=== PATIENT | female | born 1995 | race African-American/Black ===

== ENCOUNTER 2017-10-10 09:25 | Inpatient (IN) ==
[2017-10-10 10:16] LABS: Amorphous Crystals,Urine Occasional /HPF (Few); Apearance,Urine CLOUDY (Clear); Bacteria,Urine Occasional /HPF (Few); Bilirubin,Urine Negative (Negative); Blood, Urine Negative (Negative); Glucose,Urine (UA) Negative (Negative); Ketones,Urine Negative (Negative); Mucus,Urine Occasional /LPF (Occasional); Nitrite,Urine Negative (Negative); Protein,Urine Negative; RBC,Urine 3 /HPF (0-4); Squamous Epithelial Cell,Urine Many /HPF (0-10); Urine Color Yellow (Yellow); Urine Specific Gravity 1.015 (1.001-1.035); Urine Urobilinogen < 2.0 EU/DL (0.2-1.0); WBC,Urine 32 /HPF (0-6)
[2017-10-10] MEDS ORDERED: SODIUM CHLORIDE 0.9% 1,000 ML IV STA (10:39)
[2017-10-10] MEDS ORDERED: ONDANSETRON 4 MG/2 ML VIAL IV STA (10:40)
[2017-10-10] MEDS ORDERED: ONDANSETRON 4 MG/2 ML VIAL ONE (10:46)
[2017-10-10 11:01] LABS: Basophils # 0.1 10*3/uL (0.0-0.2); Basophils % 0.3 % (0.0-0.8); Eosinophils # 0.1 10*3/uL (0.0-0.87); Eosinophils % 0.3 % (0.00-10.9); Hematocrit 40.1 VOL% (35.7-47.0); Hemoglobin 13.7 GM/DL (12.0-16.0); Immature Granulocytes % 0.5 %; Immature Granulocytes Absolute 0.08 #; Lymphocytes # 2.3 10*3/uL (1.4-4.0); Lymphocytes % 13.4 % (21.3-54.2); Mean Corpuscular HGB Conc 34.2 GM/DL (32-36); Mean Corpuscular Hemoglobin 32 PG (27-34); Mean Corpuscular Volume 94.8 FL (87-102); Mean Platelet Volume 9.5 FL (9.6-12.0); Monocytes # 0.9 10*3/uL (0.11-0.8); Monocytes % 5.5 % (1.7-12.7); Neutrophils # 13.6 10*3/uL (1.4-7.4); Platelet Count 266 T/CUMM (130-400); Red Blood Count 4.23 MC/CUMM (3.8-5.5); Red Cell Distribution Width 13.2 % (9.3-17.3)
[2017-10-10 11:21] LABS: Alanine Aminotransferase 13 U/L (13-56); Albumin 3.5 G/DL (3.4-5.0); Alkaline Phosphatase 52 U/L (45-117); Aspartate Amino Transferase 13 U/L (0-37); Bilirubin,Total < 0.39 MG/DL (0.2-1.0); Blood Urea Nitrogen 10 MG/DL (7-18); Calcium 8.9 MG/DL (8.5-10.1); Glucose 79 MG/DL (74-106); Osmolality,Calculated 276.4 MOS/KG (273-304); Potassium 4.1 MMOL/L (3.5-5.1); Sodium 140 MMOL/L (136-145); Total Protein 6.9 G/DL (6.4-8.3)
[2017-10-10] MEDS ORDERED: PROMETHAZINE 25 MG/1 ML VIAL IM STA (13:43)
[2017-10-10] MEDS ORDERED: PROMETHAZINE 25 MG/1 ML VIAL ONE (13:52)
[2017-10-10] MEDS: LACTATED RINGERS 1,000 ML IV SCH (14:55)
[2017-10-10] MEDS: PROMETHAZINE 25 MG/1 ML VIAL IM SCH ×3 (14:57→20:55)
[2017-10-10] MEDS ORDERED: FAMOTIDINE INJ 40 MG in SODIUM CHLORIDE 0.9% 100 ML IV SCH (15:00)
[2017-10-10] MEDS: AMPICILLIN/SULBACTAM 1,500 MG in SODIUM CHLORIDE 0.9% 100 ML IV SCH ×2 (16:10→22:58)
[2017-10-10] MEDS: FAMOTIDINE INJ 40 MG in SODIUM CHLORIDE 0.9% 100 ML IV SCH (18:15)
[2017-10-11] MEDS: LACTATED RINGERS 1,000 ML IV SCH ×2 (00:05→11:04)
[2017-10-11] MEDS: PROMETHAZINE 25 MG/1 ML VIAL IM SCH (04:50)
[2017-10-11] MEDS: FAMOTIDINE INJ 40 MG in SODIUM CHLORIDE 0.9% 100 ML IV SCH (06:07)
[2017-10-11] MEDS: AMPICILLIN/SULBACTAM 1,500 MG in SODIUM CHLORIDE 0.9% 100 ML IV SCH (06:50)
[2017-10-11 09:56] LABS: Albumin 2.4 G/DL (3.4-5.0); Bilirubin,Total 0.4 MG/DL (0.2-1.0); Osmolality,Calculated 273.5 MOS/KG (273-304); Potassium 3.6 MMOL/L (3.5-5.1); Total Protein 5.3 G/DL (6.4-8.3)
[2017-10-11 11:51] VITALS: BP 115/59
== END 2017-10-11 14:20 | disposition home or self-care (01) | DRG 566 ==
LOC: N.ED 09:25 → N.EDINP 14:17 → N.OB 14:36
PROVIDERS: ADMIT Obstetrics & Gynecology; ATTEND Obstetrics & Gynecology

== ENCOUNTER 2019-01-21 09:40 | Inpatient (IN) ==
[2019-01-21] MEDS ORDERED: ONDANSETRON 4 MG/2 ML VIAL IV PRN (09:56)
[2019-01-21] MEDS ORDERED: BUTORPHANOL 2 MG/ML VIAL IV PRN (09:56)
[2019-01-21] MEDS ORDERED: LACTATED RINGERS 1,000 ML IV SCH (10:00)
[2019-01-21] MEDS ORDERED: OXYTOCIN/LR 20 UNIT/1,000 ML BAG IV SCH (10:00)
[2019-01-21 10:19] LABS: Basophils % 0.2 % (0.0-0.8); Eosinophils # 0.1 10*3/uL (0.0-0.87); Eosinophils % 0.5 % (0.00-10.9); Hematocrit 34.5 VOL% (35.7-47.0); Hemoglobin 11.3 GM/DL (12.0-16.0); Immature Granulocytes % 0.6 %; Immature Granulocytes Absolute 0.07 #; Lymphocytes # 2.7 10*3/uL (1.4-4.0); Lymphocytes % 21.8 % (21.3-54.2); Mean Corpuscular HGB Conc 32.8 GM/DL (32-36); Mean Corpuscular Volume 95.3 FL (87-102); Mean Platelet Volume 11.1 FL (9.6-12.0); Monocytes % 6.8 % (1.7-12.7); Neutrophils % 70.1 % (38.7-73.9); Platelet Count 197 T/CUMM (130-400); Red Blood Count 3.62 MC/CUMM (3.8-5.5); Red Cell Distribution Width 13.2 % (9.3-17.3); White Blood Count 12.4 T/CUMM (4-12)
[2019-01-21 10:53] LABS: Albumin 2.4 G/DL (3.4-5.0); Bilirubin,Total 0.8 MG/DL (0.2-1.0); Calcium 8.6 MG/DL (8.5-10.1); Osmolality,Calculated 275.4 MOS/KG (273-304); Total Protein 6.5 G/DL (6.4-8.3)
[2019-01-21 11:40] LABS: HIV Antigen/Antibody Result Nonreactive (Nonreactive); Hepatitis B Surface Ag Quant < 0.10 Index; Hepatitis B Surface Ag Result Negative (Negative); Rubella Antibody IgG 207.5 IU/ML
[2019-01-21] MEDS ORDERED: MEPERIDINE 50 MG/1 ML VIAL IV PRN (12:49)
[2019-01-21] MEDS ORDERED: LACTATED RINGERS 1,000 ML IV ONE (12:55)
[2019-01-21] MEDS ORDERED: ePHEDrine 50 MG/ML AMP IV PRN (12:55)
[2019-01-21] MEDS ORDERED: FAMOTIDINE 20 MG/2 ML VIAL IV ONE (12:55)
[2019-01-21] MEDS ORDERED: CITRIC ACID/SODIUM CITRATE 30 ML UDCUP PO ONE (12:55)
[2019-01-21] MEDS ORDERED: PROMETHAZINE 25 MG/1 ML VIAL IM ONE (12:56)
[2019-01-21] MEDS ORDERED: NALOXONE 0.4 MG/ML VIAL IV PRN (12:56)
[2019-01-21] MEDS ORDERED: diphenhydrAMINE 50 MG/1 ML VIAL IV PRN ×2 (12:56)
[2019-01-21] MEDS ORDERED: hydrOXYzine HCL 25 MG/1 ML VIAL IM PRN (12:56)
[2019-01-21] MEDS ORDERED: fentaNYL 2 MCG/ROPIV 0.2% EPID 100 ML EPIDURAL SCH (13:00)
[2019-01-21 15:17] LABS: Apearance,Urine CLEAR (Clear); Bilirubin,Urine Negative (Negative); Blood, Urine Negative (Negative); Glucose,Urine (UA) Negative (Negative); Ketones,Urine 20 mg/dL (Negative); Mucus,Urine Occasional /LPF (Occasional); Nitrite,Urine Negative (Negative); Protein,Urine Negative; RBC,Urine <1 /HPF (0-4); Squamous Epithelial Cell,Urine Occasional /HPF (0-10); Urine Color Straw (Yellow); Urine Specific Gravity 1.009 (1.001-1.035); Urine Urobilinogen < 2.0 EU/DL (0.2-1.0); WBC,Urine <1 /HPF (0-6)
[2019-01-21] MEDS ORDERED: miSOPROStol 200 MCG TABLET ONE (17:03)
[2019-01-21] MEDS ORDERED: IBUPROFEN 800 MG TABLET PO ONE (20:05)
[2019-01-21] MEDS ORDERED: ACETAMINOPHEN 325 MG TABLET PO PRN (20:37)
[2019-01-21] MEDS ORDERED: MEASLES/MUMPS/RUBELLA VACCINE 0.5 ML VIAL SUBCUT ONE (20:37)
[2019-01-21] MEDS ORDERED: BISACODYL 10 MG SUPP RECTAL PRN (20:37)
[2019-01-21] MEDS ORDERED: HYDROCORTISONE 2.5% RECTAL CREAM 30 GM TUBE TOP PRN (20:37)
[2019-01-21] MEDS ORDERED: LANOLIN 50% CREAM 0.3 OZ TUBE TOP PRN (20:37)
[2019-01-21] MEDS ORDERED: oxyCODONE/ACETAMINOPHEN 5-325 MG TABLET PO PRN (20:37)
[2019-01-21] MEDS ORDERED: RHO(D) IMMUNE GLOBULIN 300 MCG SYRINGE IM ONE (20:37)
[2019-01-21] MEDS ORDERED: BENZOCAINE 20%/MENTHOL 0.5% SPRAY 56 GM CAN TOP PRN (20:37)
[2019-01-21] MEDS ORDERED: DIPH/TET/ACEL PERT BOOSTER VACCINE 0.5 ML VIAL IM ONE (20:37)
[2019-01-21] MEDS ORDERED: WITCH HAZEL PADS 100/JAR TOP PRN (20:37)
[2019-01-21] MEDS: DOCUSATE SODIUM 100 MG CAPSULE PO SCH (21:03)
[2019-01-21] MEDS: oxyCODONE/ACETAMINOPHEN 5-325 MG TABLET PO PRN (21:06)
[2019-01-22] MEDS: oxyCODONE/ACETAMINOPHEN 5-325 MG TABLET PO PRN ×4 (02:51→20:21)
[2019-01-22 03:22] LABS: Basophils % 0.2 % (0.0-0.8); Eosinophils # 0.1 10*3/uL (0.0-0.87); Eosinophils % 0.7 % (0.00-10.9); Hematocrit 30.9 VOL% (35.7-47.0); Hemoglobin 10.1 GM/DL (12.0-16.0); Immature Granulocytes % 0.3 %; Immature Granulocytes Absolute 0.04 #; Lymphocytes # 2.7 10*3/uL (1.4-4.0); Mean Corpuscular HGB Conc 32.7 GM/DL (32-36); Mean Corpuscular Volume 96.3 FL (87-102); Mean Platelet Volume 11.6 FL (9.6-12.0); Monocytes % 7.9 % (1.7-12.7); Neutrophils % 69.9 % (38.7-73.9); Platelet Count 154 T/CUMM (130-400); Red Blood Count 3.21 MC/CUMM (3.8-5.5); Red Cell Distribution Width 13.2 % (9.3-17.3)
[2019-01-22] MEDS: DOCUSATE SODIUM 100 MG CAPSULE PO SCH ×3 (07:29→21:57)
[2019-01-22] MEDS: IBUPROFEN 800 MG TABLET PO PRN ×3 (07:30→22:01)
[2019-01-23] MEDS: oxyCODONE/ACETAMINOPHEN 5-325 MG TABLET PO PRN ×2 (03:41→09:39)
[2019-01-23 07:48] VITALS: BP 118/72
[2019-01-23] MEDS: DOCUSATE SODIUM 100 MG CAPSULE PO SCH (08:06)
[2019-01-23] MEDS: IBUPROFEN 800 MG TABLET PO PRN (09:39)
== END 2019-01-23 15:10 | disposition home or self-care (01) | DRG 560 ==
LOC: N.LDOUT 09:40 → N.LD 09:44 → N.OB 20:36 → UNDODISIN 01-22 14:45
PROVIDERS: ADMIT Obstetrics & Gynecology; ATTEND Obstetrics & Gynecology

== ENCOUNTER 2020-03-05 07:22 | Inpatient (IN) ==
[2020-03-05] MEDS ORDERED: ONDANSETRON 4 MG/2 ML VIAL IV PRN ×2 (08:03→15:46)
[2020-03-05] MEDS ORDERED: MEPERIDINE 50 MG/1 ML VIAL IM PRN (08:03)
[2020-03-05] MEDS ORDERED: BUTORPHANOL 2 MG/ML VIAL IV PRN (08:03)
[2020-03-05 08:35] LABS: Basophils % 0.1 % (0.0-0.8); Eosinophils # 0.1 10*3/uL (0.0-0.87); Eosinophils % 0.6 % (0.00-10.9); Hematocrit 37.3 VOL% (35.7-47.0); Hemoglobin 12.4 GM/DL (12.0-16.0); Immature Granulocytes % 0.5 %; Immature Granulocytes Absolute 0.08 #; Lymphocytes % 19.7 % (21.3-54.2); Mean Corpuscular HGB Conc 33.2 GM/DL (32-36); Mean Corpuscular Volume 96.9 FL (87-102); Mean Platelet Volume 12.8 FL (9.6-12.0); Monocytes % 6.4 % (1.7-12.7); Neutrophils % 72.7 % (38.7-73.9); Platelet Count 152 T/CUMM (130-400); Red Blood Count 3.85 MC/CUMM (3.8-5.5); Red Cell Distribution Width 13.4 % (9.3-17.3); White Blood Count 15.1 T/CUMM (4-12)
[2020-03-05] MEDS ORDERED: NALOXONE 0.4 MG/ML VIAL IV PRN (08:35)
[2020-03-05] MEDS ORDERED: ONDANSETRON 4 MG/2 ML VIAL IV ONE (08:35)
[2020-03-05] MEDS ORDERED: diphenhydrAMINE 50 MG/1 ML VIAL IV PRN ×2 (08:35)
[2020-03-05] MEDS ORDERED: LACTATED RINGERS 1,000 ML IV ONE (08:35)
[2020-03-05] MEDS ORDERED: ePHEDrine 50 MG/ML VIAL IV PRN (08:35)
[2020-03-05] MEDS ORDERED: PROMETHAZINE 25 MG/1 ML VIAL IM ONE (08:35)
[2020-03-05] MEDS ORDERED: FAMOTIDINE 20 MG/2 ML VIAL IV ONE (08:35)
[2020-03-05] MEDS ORDERED: hydrOXYzine HCL 25 MG/1 ML VIAL IM PRN (08:35)
[2020-03-05 09:00] LABS: Alanine Aminotransferase 13 U/L (13-56); Albumin 2.7 G/DL (3.4-5.0); Alkaline Phosphatase 141 U/L (45-117); Aspartate Amino Transferase 14 U/L (0-37); Bilirubin,Total < 0.39 MG/DL (0.2-1.0); Blood Urea Nitrogen 7 MG/DL (7-18); Calcium 9.5 MG/DL (8.5-10.1); Estimated Glom Filtration Rate 145 ML/MIN; Glucose 72 MG/DL (74-106)
[2020-03-05] MEDS ORDERED: OXYTOCIN/LR 20 UNIT/1,000 ML BAG IV SCH (09:00)
[2020-03-05] MEDS ORDERED: fentaNYL 2 MCG/ROPIV 0.2% EPID 100 ML EPIDURAL SCH (09:00)
[2020-03-05] MEDS: LACTATED RINGERS 1,000 ML IV SCH ×2 (09:11→12:45)
[2020-03-05 10:26] LABS: Bacteria,Urine Occasional /HPF (Few); Bilirubin,Urine Negative (Negative); Blood, Urine Negative (Negative); Glucose,Urine (UA) Negative (Negative); Ketones,Urine Negative (Negative); Mucus,Urine Occasional /LPF (Occasional); Nitrite,Urine Negative (Negative); Protein,Urine Negative; RBC,Urine 1 /HPF (0-4); Squamous Epithelial Cell,Urine Occasional /HPF (0-10); Urine Appearance CLEAR (Clear); Urine Color Straw (Yellow); Urine Specific Gravity 1.002 (1.001-1.035); Urine Urobilinogen < 2.0 EU/DL (0.2-1.0); WBC,Urine <1 /HPF (0-6)
[2020-03-05] MEDS ORDERED: METHYLERGONOVINE 0.2 MG/1 ML AMP ONE (13:34)
[2020-03-05] MEDS ORDERED: CARBOPROST TROMETHAMINE 250 MCG/ML AMP IM ONE (13:34)
[2020-03-05] MEDS ORDERED: miSOPROStoL 200 MCG TABLET ONE (13:34)
[2020-03-05] MEDS ORDERED: TRANEXAMIC ACID 1,000 MG/10 ML VIAL ONE (13:34)
[2020-03-05] MEDS ORDERED: SODIUM CHLORIDE 0.9% 0 ML IV ONE (13:35)
[2020-03-05] MEDS ORDERED: LIDOCAINE 1% 50 ML VIAL ONE (13:35)
[2020-03-05 14:19] LABS: Cord Arterial Blood HCO3 18.9 MMOL/L
[2020-03-05 14:23] LABS: Cord Venous Blood HCO3 22.9 MMOL/L; Cord Venous Blood PCO2 34.8 MMHG; Cord Venous Blood PO2 26.7
[2020-03-05] MEDS ORDERED: RHO(D) IMMUNE GLOBULIN 300 MCG SYRINGE IM ONE (15:36)
[2020-03-05] MEDS ORDERED: LANOLIN 50% CREAM 0.3 OZ TUBE TOP PRN (15:36)
[2020-03-05] MEDS ORDERED: MEASLES/MUMPS/RUBELLA VACCINE 0.5 ML VIAL SUBCUT ONE (15:36)
[2020-03-05] MEDS ORDERED: BISACODYL 10 MG SUPP RECTAL PRN (15:36)
[2020-03-05] MEDS ORDERED: DIPH/TET/ACEL PERT BOOSTER VACCINE 0.5 ML VIAL IM ONE (15:36)
[2020-03-05] MEDS ORDERED: ACETAMINOPHEN 325 MG TABLET PO PRN (15:36)
[2020-03-05] MEDS ORDERED: HYDROCORTISONE 2.5% RECTAL CREAM 30 GM TUBE TOP PRN (15:36)
[2020-03-05] MEDS ORDERED: BENZOCAINE 20%/MENTHOL 0.5% SPRAY 56 GM CAN TOP PRN (15:36)
[2020-03-05] MEDS ORDERED: WITCH HAZEL PADS 100/JAR TOP PRN (15:36)
[2020-03-05] MEDS ORDERED: OXYTOCIN/LR 20 UNIT/1,000 ML BAG IV ONE (15:36)
[2020-03-05] MEDS: IBUPROFEN 800 MG TABLET PO PRN ×2 (16:55→23:06)
[2020-03-05] MEDS: oxyCODONE/ACETAMINOPHEN 5-325 MG TABLET PO PRN ×2 (16:56→23:07)
[2020-03-05] MEDS: DOCUSATE SODIUM 100 MG CAPSULE PO SCH (21:00)
[2020-03-05 22:36] LABS: Barbiturates Screen,Urine Negative (Negative); Benzodiazepines Screen,Urine Negative (Negative); Cannabinoid Screen,Urine Positive (Negative); Opiate Screen,Urine Negative (Negative); Phencyclidine Screen,Urine Negative (Negative)
[2020-03-06] MEDS: oxyCODONE/ACETAMINOPHEN 5-325 MG TABLET PO PRN ×3 (05:08→21:19)
[2020-03-06] MEDS: IBUPROFEN 800 MG TABLET PO PRN ×3 (05:08→17:58)
[2020-03-06 06:03] LABS: Basophils # 0.1 10*3/uL (0.0-0.2); Basophils % 0.4 % (0.0-0.8); Eosinophils # 0.2 10*3/uL (0.0-0.87); Eosinophils % 1.1 % (0.00-10.9); Hemoglobin 11.3 GM/DL (12.0-16.0); Immature Granulocytes % 0.4 %; Immature Granulocytes Absolute 0.07 #; Lymphocytes # 4.3 10*3/uL (1.4-4.0); Lymphocytes % 27.3 % (21.3-54.2); Mean Corpuscular HGB Conc 33.2 GM/DL (32-36); Mean Corpuscular Volume 97.1 FL (87-102); Mean Platelet Volume 12.1 FL (9.6-12.0); Monocytes % 7.1 % (1.7-12.7); Neutrophils % 63.7 % (38.7-73.9); Platelet Count 177 T/CUMM (130-400); Red Cell Distribution Width 13.4 % (9.3-17.3); White Blood Count 15.7 T/CUMM (4-12)
[2020-03-06 06:26] LABS: Eosinophils 3 % (0-10); Hypochromasia 1+; Lymphocytes 30 % (20-55); Platelet Estimate Adequate; Segmented Neutrophils 62 % (50-85); Total Cells Counted 100
[2020-03-06] MEDS: DOCUSATE SODIUM 100 MG CAPSULE PO SCH ×2 (08:15→21:18)
[2020-03-07] MEDS: oxyCODONE/ACETAMINOPHEN 5-325 MG TABLET PO PRN ×2 (03:19→10:34)
[2020-03-07] MEDS: IBUPROFEN 800 MG TABLET PO PRN ×2 (03:20→10:34)
[2020-03-07 08:00] VITALS: BP 112/64
[2020-03-07] MEDS: DOCUSATE SODIUM 100 MG CAPSULE PO SCH (08:42)
== END 2020-03-07 12:45 | disposition home or self-care (01) | DRG 560 ==
LOC: N.LDOUT 07:22 → N.LD 07:23 → N.OB 15:45 → UNDODISIN 03-07 11:35
PROVIDERS: ADMIT Obstetrics & Gynecology; ATTEND Obstetrics & Gynecology